=== PATIENT | female | born 1970 | race Caucasian/White ===

== ENCOUNTER → 2023-07-31 13:04 | Outpatient (REF) | payer OTHER, SELFPAY | LOC: HWRAD 13:04 | PROVIDERS: ATTENDING PHYSICIAN Obstetrics & Gynecology; FAMILY PHYSICIAN Nurse Practitioner Adult Health | DX: M62.89 Other specified disorders of muscle (principal); R10.2 Pelvic and perineal pain | CPT/HCPCS: 76830; 76856 ==

== ENCOUNTER → 2023-08-24 11:20 | Outpatient (REF) | payer OTHER, SELFPAY | LOC: RAD 11:20 | PROVIDERS: ATTENDING PHYSICIAN Nurse Practitioner Adult Health | DX: E04.1 Nontoxic single thyroid nodule (principal) | CPT/HCPCS: 76536 ==

== ENCOUNTER → 2023-09-20 09:06 | Outpatient (REF) | payer OTHER, SELFPAY | LOC: DHCBC HW 09:06 | PROVIDERS: ATTENDING PHYSICIAN Internal Medicine; FAMILY PHYSICIAN Nurse Practitioner Adult Health | DX: I47.10 Supraventricular tachycardia, unspecified (principal); R00.2 Palpitations; R07.89 Other chest pain; R00.0 Tachycardia, unspecified | CPT/HCPCS: 93306 ==

== ENCOUNTER → 2024-02-13 14:47 | Outpatient (REF) | payer OTHER, SELFPAY | LOC: RAD 14:47 | PROVIDERS: ATTENDING PHYSICIAN Registered Nurse Ambulatory Care | DX: M79.605 Pain in left leg (principal) | CPT/HCPCS: 72110; 73502; 93971 ==

== ENCOUNTER 2025-06-13 04:40 | Emergency (ER) | payer OTHER, SELFPAY ==
[2025-06-13 04:42] VITALS: BP 146/84
[2025-06-13 05:31] VITALS: BP 130/83
[2025-06-13 05:33] VITALS: BP 130/83
--- NOTE | 2025-06-13 05:47 | ED.GENMED ---
History of Present Illness
General
Chief Complaint: Abdominal Symptoms
Source: patient
Exam Limitations: none
Time Seen by Provider: 06/13/25 05:31
Nursing documentation reviewed up to this point in time: agreed with
History of Present Illness
History of Present Illness:
54-year-old female with a past medical history as noted presents to the ER for evaluation of GI symptoms. Patient reports that she recently returned from vacation to [facility] on 06/08/2025. She says that when she returned home she started to have
profuse vomiting and had 24 hours of fever. Since then she has had continued nausea and has developed diarrhea and has had daily nonbloody diarrhea since. She says that yesterday she started having some abdominal cramping and what she feels is a
sensation of internal itching in her upper abdomen. Fever resolved after 24 hours has not had recurrence since. She denies any other acute symptoms. She does report that another friend on the trip was sick but not as severely. She saw her
primary physician who ordered her for outpatient stool studies which she submitted yesterday but she does not yet have the results.
Past History
Past History
ED Past Medical History: GERD and Other (SVT, PE, rheumatoid arthritis)
ED Past Surgical History: Gynecological (hysterectomy)
Patient has exhibited threatening behavior?: No
Social History
Tobacco: Non-smoker
Alcohol: Occasional
Personal:
Living: with family
Employment: Employed
Family History
Family History: Negative CAD or Sudden
Review of Systems
Review of Systems
All Other Systems: ROS reviewed and negative except as documented in HPI and ROS
Constitutional: Denies fever or chills
Respiratory: Denies trouble breathing
Cardiac: Denies chest pain
ABD/GI: Reports abdominal pain, nausea, vomiting and diarrhea
: Denies flank pain
Musculoskeletal: Reports muscle pain; Denies neck pain or back pain
Neurological: Denies dizzy or headache
Phy Exam
Physical Exam
Physical Exam:
General: Awake, alert, oriented x3; no acute distress
Head: Normocephalic, atraumatic
Eyes: Conjunctiva normal, sclera anicteric
Throat: Airway intact, handling secretions
Neck: Trachea midline, supple without meningismus
Lungs: Clear to auscultation bilaterally, no wheezing, rales, rhonchi
Heart: Regular rate and rhythm, no murmurs, gallops, or rubs
Abd: Soft, non distended, mildly tender in the epigastrium
Neuro: Grossly intact
Skin: No rash noted
Extremities: Warm and well-perfused
Scores
Heart Failure Risk
Heart Failure Risk Score: Not Applicable
Heart Score for Chest Pain Patients
STEMI patient?: Not applicable
Withdrawal Assessment of Alcohol
Withdrawal Assessment Completed?: Not applicable
Course
Orders/Labs/Results
Orders:
Orders
06/13/25 05:34
CT Abd/pelvis W Iv Cont Urgent
Comment:
Reason For Exam: abd pain, N/V/D
06/13/25 05:43
0.9% Sodium Chloride 1000 ml [Nss] 1,000 ml IV BOLUS
06/13/25 05:54
Complete Blood Count/With Diff Urgent
Comprehensive Metabolic Panel Urgent
Abnormal Lab Results
06/13/25
05:54
Hct 35.8 L %
(37.0-47.0)
Total Protein 6.2 L g/dl
(6.3-8.2)
06/13/25 05:54
06/13/25 05:54
Vital Signs
Initial and Last Documented VS:
Initial Vital Signs
Temp Pulse Resp BP Pulse Ox
36.7 C 85 18 146/84 98
06/13/25 04:42 06/13/25 04:42 06/13/25 04:42 06/13/25 04:42 06/13/25 04:42
Last Documented Vital Signs
Temp Pulse Resp BP Pulse Ox
36.7 C 78 16 130/72 98
06/13/25 04:42 06/13/25 07:09 06/13/25 07:09 06/13/25 07:09 06/13/25 07:09
MDM/Problems Addressed
Differential Diagnosis Includes:
Enteritis, colitis�viral versus bacterial versus parasitic
MDM/Problems Addressed:
54-year-old female presents for evaluation of GI symptoms�return from vacation to [facility] had 24 hours of fever with profuse vomiting since then has had daily diarrhea and over the past 2 days has developed abdominal pain. She did submit
outpatient stool studies does not have results yet. Vital signs here within acceptable range. Physical exam as noted. Check basic labs, CT abdomen. Provide some IV fluids. Reassess after the above.
Labs reviewed: CBC and CMP no clinically significant abnormalities. CT shows findings consistent with mild acute colitis. Overall her primary symptom is diarrhea only mild abdominal discomfort. She already has outpatient stool studies pending
would hold on any antibiotics pending stool studies to evaluate for definitive etiology. No clear indication for hospital admission, stable for discharge continue outpatient workup. Advised regarding BRAT diet, follow-up plan. All questions
answered.
*Radiology
Radiology exam reviewed: radiology read reviewed
*Pulse Oximetry
SaO2: 98
Oxygen Mode of Delivery: Room air
Patient hypoxic: no (98%)
*Critical Care Note
Total Time (30-74mins, 75-104mins- exclusive of procedures): Not Applicable
Data Reviewed
Review of Other/Old Records Reveals: Labs
Source: patient and records
ED Attending Note
-
Portions of this chart may have been created with voice recognition software.� Occasional wrong word or��sound alike� substitutions may have occurred due to the inherent limitations of voice recognition software.
Discharge Plan
Departure
Patient Disposition: Home (Routine Discharge)
Date of Disposition: 06/13/25
Time of Disposition: 07:20
Patient with high blood pressure during this ER visit?: Yes
Discharge Problem:
Colitis
Instructions: Colitis (DC)
Prescriptions:
No Action
progesterone micronized 100 MG capsule
100 mg PO HS
dexlansoprazole [Dexilant] 30 mg Capsule,Biphase Delayed Releas
30 mg PO DAILY
Referrals:
UNKNOWN - PT DOES,NOT KNOW [Unknown Provider]
Activity Restrictions/Additional Instructions:
You should follow-up with your primary doctor early next week to review stool studies and discuss further management of your symptoms. You should try to stick to a bland diet and make sure you are drinking plenty of fluids. If you feel your symptoms
are worsening or if you develop any new symptoms that are concerning to you please return to the ER to be reassessed.
Thank you for visiting the Emergency Department at [facility].
1. Please schedule a follow up appointment as directed. Call first thing tomorrow morning to make an appointment.
2. If indicated, please take your medications as instructed and indicated on discharge paperwork.
3. If any of your symptoms do not improve, or persist, or become more severe within 6-12 hours, please return to the emergency department for further care.
4. Please return to the emergency department if you develop a headache, neck pain/stiffness, fever greater than 100.4F, chest pain, shortness of breath, persistent nausea, vomiting, slurred speech, difficulty walking, numbness/tingling, weakness,
signs of infection or any other symptoms that are worrisome to you.
Please call [phone] if you have any questions.
Interventions
Interventions:
*Risk Screen - Suicide Last Done: 06/13/25 04:42
*Neglect/Abuse Screening Last Done: 06/13/25 06:44
*ED COVID-19 Vaccine History Last Done: 06/13/25 06:44
*ED Influenza Vaccine History Last Done: 06/13/25 06:44
[facility] Risk Assessment Tool Last Done: 06/13/25 04:41
FX-[id number]-Vhhnemxxlf Assessment Last Done: 06/13/25 07:09
Discharge Date and Time
Print Language: PASHTO
[2025-06-13] MEDS: NSS 1000 IV (05:54)
[2025-06-13 06:05] LABS: Hematocrit 35.8 % (37.0-47.0); Hemoglobin 12.4 g/dL (12.0-16.0); Mean Corp Hgb Conc. 34.6 g/dL (33.0-37.0); Mean Corpuscular Volume 84.8 fL (81.0-99.0); Nucleated Red Blood Cells % 0 %; Platelet Count 361 10^3/uL (130-400); Red Cell Dist. Width 12.7 % (11.5-14.5)
[2025-06-13 06:26] LABS: ALT (SGPT) 20 U/L (0-35); AST (SGOT) 21 U/L (14-36); Albumin 3.7 g/dl (3.5-5.0); Alkaline Phosphatase 60 U/L (38-126); Blood Urea Nitrogen 10 mg/dl (7-17); Calcium 8.5 mg/dl (8.4-10.2); Carbon Dioxide 29 mmol/L (22-30); Chloride 107 mmol/L (98-107); Glucose 87 mg/dl (70-99); Potassium 3.8 mmol/L (3.5-5.1); Sodium 140 mmol/L (135-145); Total Protein 6.2 g/dl (6.3-8.2); eGFR > 60.00
[2025-06-13 07:09] VITALS: BP 130/72
== END 2025-06-13 07:44 | disposition home or self-care (01) ==
LOC: EMR 04:40
PROVIDERS: EMERGENCY PHYSICIAN Emergency Medicine; FAMILY PHYSICIAN Family Medicine
DX: K52.9 Noninfective gastroenteritis and colitis, unspecified (principal); M06.9 Rheumatoid arthritis, unspecified; Z90.710 Acquired absence of both cervix and uterus
CPT/HCPCS: 99284; 96360; 74177; 80053; 85025; Q9967